=== PATIENT | male | born 1990 | race Two or more races ===

== ENCOUNTER 2022-03-07 15:23 | Emergency (ER) | payer SELFPAY ==
[~2022-03-07] VITALS: Ht 172.7 cm; Wt 77.6 kg
[2022-03-07 16:10] VITALS: BP 127/76
[2022-03-07] MEDS ORDERED: cefTRIAXone 1,000 MG in LIDOCAINE MPF 1% 2.1 ML IM ONE (16:25)
[2022-03-07] MEDS ORDERED: BACITRACIN OINT 500 UNITS/GM PKT TP ONE (16:25)
--- NOTE | 2022-03-07 16:25 | NUR ---
PT TAKEN TO BED 4.
[2022-03-07] MEDS ORDERED: KETOROLAC 30 MG/ML VIAL IM ONE (16:30)
[2022-03-07] MEDS ORDERED: cefTRIAXone 1,000 MG VIAL ONE (16:50)
[2022-03-07] MEDS ORDERED: LIDOCAINE MPF 1% 5 ML ONE (16:50)
[2022-03-07] MEDS ORDERED: SULF-59 PO (17:07)
[2022-03-07] MEDS ORDERED: BACI28.43 TP (17:07)
[2022-03-07] MEDS ORDERED: CEPH-588 PO (17:07)
[2022-03-07] MEDS ORDERED: IBUP-2213 PO (17:07)
[2022-03-07 17:51] VITALS: BP 127/76
== END 2022-03-07 17:51 | disposition home or self-care (01) ==
LOC: MED 15:23
DX: L03.116 Cellulitis of left lower limb (principal); Z79.899 Other long term (current) drug therapy
CPT/HCPCS: 73590; 96372; 99284; J0696; J1885; J2001; Q0092

== ENCOUNTER 2022-08-17 15:32 | Emergency (ER) | payer MEDICAID ==
[~2022-08-17] VITALS: Ht 175.3 cm; Wt 70.3 kg
[~2022-08-17 15:32] MED LIST: BACI28.43 TP; CEPH-588 PO; IBUP-2213 PO; SULF-59 PO
[2022-08-17 15:41] VITALS: BP 151/96
--- NOTE | 2022-08-17 16:27 | NUR ---
pt left without paper work.
== END 2022-08-17 16:27 | disposition home or self-care (01) ==
LOC: MED 15:32
DX: F12.90 Cannabis use, unspecified, uncomplicated (principal); Z76.0 Encounter for issue of repeat prescription; Z79.899 Other long term (current) drug therapy
CPT/HCPCS: 99281

== ENCOUNTER 2022-11-20 22:13 | Emergency (ER) | payer MEDICAID, OTHER ==
[~2022-11-20] VITALS: Ht 172.7 cm; Wt 81.6 kg
[2022-11-20 22:26] VITALS: BP 157/79
--- NOTE | 2022-11-20 22:29 | NUR ---
TO LOBBY A/W BED AMBULATORY
--- NOTE | 2022-11-20 22:56 | NUR ---
Dr. Cash examining patient.
[2022-11-21 01:20] VITALS: BP 145/75
--- NOTE | 2022-11-21 01:20 | NUR ---
Patient discharged with v/s stable. Written and verbal after care instructions given and explained. Patient verbalized understanding. Ambulatory with steady gait. All questions addressed prior to discharge. Advised to follow up with PMD.
== END 2022-11-21 01:20 | disposition home or self-care (01) ==
LOC: MED 22:13
DX: F11.10 Opioid abuse, uncomplicated (principal); R25.1 Tremor, unspecified
CPT/HCPCS: 99281